=== PATIENT | female | born 1955 | race Caucasian/White ===

== ENCOUNTER 2023-01-10 12:20 | Day surgery (SDC) | payer MEDICARE, OTHER ==
[~2023-01-10] VITALS: Ht 154.9 cm; Wt 78.0 kg
[~2023-01-10 12:20] MED LIST: BIOTIN10000 MC1 PO; COZAAR25 MG PO; LIPITOR80 MG PO; LO-DOSE ASPIRIN81 MG PO; ZOFRAN ODT4 MG PO
[2023-01-10 12:51] VITALS: BP 136/67
[2023-01-10 15:38] VITALS: BP 129/74
--- NOTE | 2023-01-10 15:45 | NUR ---
01/10/23 1545 Stephanie Don 1516 PT ARRIVED IN PACU AWAKE WITH NO C/O'S. 1525 DR AT BEDSIDE. ALL QUESTIONS ANSWERED. 1535 GETTING DRESSED WITH STAND BY ASSIST. 1545 DC INSTRUCTIONS GIVEN.
--- NOTE | 2023-01-13 15:24 | OR ---
[facility] [address], [place] [address] Signed DATE OF OPERATION: 01/10/2023 SURGEON: Padmini Romero MD PREOPERATIVE DIAGNOSIS: History of adenomatous polyp and hyperplastic polyps 2010 ([place], [place]). POSTOPERATIVE DIAGNOSES: 1. No evidence of recurrent or new polyps. 2. Small everted left-sided diverticulum. 3. Minimal diverticular changes. PROCEDURE: Total colonoscopy to the cecum. ANESTHESIA: Intravenous sedation; fentanyl 100 mcg, Versed 4 mg total. INDICATION: This 67-year-old white woman is a patient of Dr. Linda Bustamante and at [facility]. She underwent colonoscopy in [place] in 2010, which showed a hyperplastic polyp x2 and an adenomatous polyp. She has no symptoms of bleeding, diarrhea, or constipation. She is here now for colonoscopy. She understands the risk of bleeding, infection, and perforation. FINDINGS: The prep was excellent. Complete colonoscopy was undertaken to the cecum without question. She had a few scattered small diverticula and one everted diverticulum but no evidence of actual polyp or colitis or other abnormality. DESCRIPTION OF PROCEDURE: The patient was brought to the endoscopy suite and placed in the lateral decubitus position, given intravenous sedation to the point of slurred speech and nystagmus. Digital rectal examination was normal. An Olympus video colonoscope was passed in the rectum and manipulated throughout the colon ultimately intubating the cecum itself. Full intubation of the cecum was accomplished. The ileocecal valve and appendiceal orifice were normal. The scope was withdrawn from that point and examination undertaken showing no sign of abnormality into the left colon where a few scattered diverticula were seen as well as one everted Electronically Signed By: PADMINI ROMERO MD 01/13/23 1524 PATIENT NAME: SANDY BOYKIN OPERATIVE REPORT DATE OF : 59 REPORT #: [id number] PHYSICIAN: PADMINI ROMERO MD PCP: ELSIE ISLAS MD REPORT IS CONFIDENTIAL AND NOT TO BE RELEASED WITHOUT AUTHORIZATION [facility] [address], [place] [address] Signed diverticulum, it was left in situ. The scope was withdrawn and the remaining colon was normal. Retroflexed view of the rectum was normal as well. The scope was removed and the patient was taken to the recovery room in good condition. CONCLUDING DIAGNOSIS: Minimal diverticular changes, one everted diverticulum. PLAN: Recommend repeat colonoscopy in 10 years, and recommend high-fiber diet. She will return to the ongoing care of Dr. Bustamante and others. MD YAMIL Hein/DESTINEE /[id number] cc: . Linda Bustamante MD Copies: LINDA BUSTAMANTE MD ~ Electronically Signed By: PADMINI ROMERO MD 01/13/23 1524 PATIENT NAME: SANDY BOYKIN OPERATIVE REPORT DATE OF : 59 REPORT #: [id number] PHYSICIAN: PADMINI ROMERO MD PCP: ELSIE ISLAS MD REPORT IS CONFIDENTIAL AND NOT TO BE RELEASED WITHOUT AUTHORIZATION
== END 2023-01-10 15:40 | disposition home or self-care (01) ==
LOC: OPS 12:20 → DS 12:20 → OPS 14:00 → DS 14:00 → OPS 15:40
PROVIDERS: ATTEND Surgery
PROC: 0DJD8ZZ Inspection of Lower Intestinal Tract, Via Natural or Artificial Opening Endoscopic (ICD-10-PCS; principal; 2023-01-10 14:00)
DX: Z12.11 Encounter for screening for malignant neoplasm of colon (principal); Z86.010 Personal history of colon polyps; Z86.73 Personal history of transient ischemic attack (TIA), and cerebral infarction without residual deficits; I10 Essential (primary) hypertension; K57.30 Diverticulosis of large intestine without perforation or abscess without bleeding
CPT/HCPCS: 99153; G0500; J2250; J3010; J7121